=== PATIENT | male | born 1960 | race Caucasian/White ===

== ENCOUNTER 2023-12-13 17:08 | Emergency (ER) | payer OTHER, SELFPAY ==
[2023-12-13 17:12] VITALS: BP 165/78
[2023-12-13] MEDS: BENADRYL 25 MG IV (18:04)
--- NOTE | 2023-12-13 18:04 | ED.GENMED ---
History of Present Illness
General
Chief Complaint: Allergic Reaction
Source: patient and spouse
Exam Limitations: none
Time Seen by Provider: 12/13/23 17:23
Nursing documentation reviewed up to this point in time: agreed with
History of Present Illness
History of Present Illness:
63-year-old male referred from urgent care after bee sting presumably without side with his felt pain on his right thumb and right ankle little bit of swelling did not think too much of it as he has been stung previously numerous times
continued to hike for about an hour, he did feel short of breath, stopped at a store got some Benadryl took 125 mg tablet and went home noticed some tongue swelling and hives all over his body which he has not had previously, went to an urgent care
was given epi 1-1000 0.3, and p.o. prednisone referred here due to severity of symptoms and question of low pulse ox here states he is feeling better overall, his mouth is dry that was hot out today did not drink very much, no abdominal pain no
further tongue swelling breathing has improved
Past History
Social History
Tobacco: Former smoker
Alcohol: None
Drug: None
Personal:
Living: with family
Review of Systems
Review of Systems
All Other Systems: Not applicable
Constitutional: Reports fatigue
EENT: Reports other (Tongue swelling initially which is resolved)
Respiratory: Reports trouble breathing (Initially which is resolved)
Cardiac: Reports no symptoms
ABD/GI: Reports no symptoms; Denies abdominal pain
: Reports no symptoms
Musculoskeletal: Reports no symptoms
Skin: Reports itching and rash
Neurological: Reports no symptoms
Endocrine: Reports no symptoms
Phy Exam
Physical Exam
Physical Exam:
Physical Exam
General: no apparent distress, not acutely ill
Neck: Lips are dry no tongue swelling
Heart: s1/s2 regular rate and rhythm, no murmur. equal radial pulses.
Lungs: no acute respiratory distress. clear bilaterally no wheeze
Abdomen: Not tender
Neuro: alert and oriented. no focal neurological deficits
Skin: Diffuse hives on his chest and arms
Psychiatric: well kept. interactive and cooperative
Extremities: no edema
Course
Orders/Labs/Results
Orders:
Orders
12/13/23 17:50
0.9% Sodium Chloride 1000 ml [Nss] 1,000 ml IV BOLUS
Diphenhydramine [Benadryl] 25 mg IV NOW STA
Vital Signs
Initial and Last Documented VS:
Initial Vital Signs
Temp Pulse Resp BP Pulse Ox
98.3 F 52 16 165/78 94
12/13/23 17:12 12/13/23 17:12 12/13/23 17:12 12/13/23 17:12 12/13/23 17:12
Last Documented Vital Signs
Temp Pulse Resp BP Pulse Ox
98.3 F 73 16 165/78 97
12/13/23 17:12 12/13/23 19:18 12/13/23 19:18 12/13/23 17:12 12/13/23 19:45
MDM/Problems Addressed
Differential Diagnosis Includes:
Presumed bee sting, or other similar insect, with allergic reaction no true anaphylaxis
MDM/Problems Addressed:
Swelling hives
*Pulse Oximetry
Patient hypoxic: no
Comment: 96
*Pinion Polisher Interpretation
Rate: normal
Interpretation: normal
Heart Rate: 78
Rhythm: sinus
*Critical Care Note
Total Time (30-74mins, 75-104mins- exclusive of procedures): Not Applicable
Update Note
Update Note:
Patient with presumed bee sting or similar with moderate symptoms better after Benadryl steroids and epi did have tongue swelling and shortness of breath suspect he is dry is very hot out today has been drinking plus effects of the Benadryl will
hydrate, placed on a cardiac rn watch for any rebound, recommended the patient have an EpiPen with him when he is outside
750p---pt feeling better
ED Attending Note
-
Portions of this chart may have been created with voice recognition software.� Occasional wrong word or��sound alike� substitutions may have occurred due to the inherent limitations of voice recognition software.
Discharge Plan
Departure
Patient Disposition: Home (Routine Discharge)
Date of Disposition: 12/13/23
Time of Disposition: 19:53
Patient with high blood pressure during this ER visit?: No
Condition: Good
Discharge Problem:
Accidental bee sting
Instructions: Hives (DC)
Prescriptions:
New
methylprednisolone [Medrol (Kevin)] 4 mg tablets,dose pack
See Rx Instructions .ROUTE .COMPLEX Qty: 21 0RF
Rx Instructions:
for 6 days
epinephrine [EpiPen] 0.3 mg/0.3 mL auto-injector
0.3 mg IM .STAT PRN (Reason: anaphylaxis) Qty: 1 5RF
Activity Restrictions/Additional Instructions:
Keep an EpiPen with you while you are outside
Benadryl 1 capsule every 4-6 hours for the next day or so
Medrol Dosepak as prescribed
Return to the ER for worsening or recurrent symptoms
Interventions
Interventions:
*Risk Screen - Suicide Last Done: 12/13/23 19:01
*General Assessment Last Done: 12/13/23 19:00
*Neglect/Abuse Screening Last Done: 12/13/23 19:00
ED- Fall Risk Assessment Last Done: 12/13/23 18:59
*ED COVID-19 Vaccine History Last Done: 12/13/23 17:12
ED- Cardiac Assessment Last Done: 12/13/23 18:59
ED- Pulmonary Assessment Last Done: 12/13/23 18:59
ED-Skin Assessment Last Done: 12/13/23 18:59
Discharge Date and Time
Print Language: GREEK
[2023-12-13] MEDS: NSS 1000 IV (18:07)
[2023-12-13 20:00] VITALS: BP 116/100
[2023-12-13 20:02] VITALS: BP 116/100
== END 2023-12-13 20:03 | disposition home or self-care (01) ==
LOC: EMR 17:08
PROVIDERS: EMERGENCY PHYSICIAN Emergency Medicine; FAMILY PHYSICIAN Family Medicine
DX: T63.441A Toxic effect of venom of bees, accidental (unintentional), initial encounter (principal); R06.02 Shortness of breath; R22.0 Localized swelling, mass and lump, head; L50.0 Allergic urticaria; R53.83 Other fatigue; Z87.891 Personal history of nicotine dependence
CPT/HCPCS: 99284; 96374; 96361